=== PATIENT | female | born 1990 | race Caucasian/White ===

== ENCOUNTER 2016-04-05 00:56 | Emergency (ER) | payer BC ==
[2016-04-05] MEDS ORDERED: Ondansetron INJ* 2 MG/ML VIAL IV ONE (03:18)
[2016-04-05] MEDS ORDERED: NS 0.9% 1000 ML* 2,000 ML IV ONE (03:18)
[2016-04-05 03:30] LABS: Hematocrit 41 % (35-47); Hemoglobin 13.2 g/dl (12.0-16.0); Mean Corpuscular HGB Conc 32 g/dl (31-36); Mean Corpuscular Hemoglobin 27 pg (27-31); Mean Corpuscular Volume 83 fL (80-97); Mean Platelet Volume 9 um3 (7.4-10.4); Red Blood Count 4.97 10^6/ul (4.0-5.4); Red Cell Distribution Width 13 % (10.5-15); White Blood Count 15.5 10^3/ul (3.5-10.8)
[2016-04-05 03:33] LABS: Urine Bacteria Absent (Absent); Urine Bilirubin Negative (Negative); Urine Glucose Negative (Negative); Urine Nitrite Negative (Negative)
[2016-04-05 03:39] LABS: ALT 25 U/L (7-52); AST 18 U/L (13-39); Albumin 4.5 g/dL (3.2-5.2); Alkaline Phosphatase 76 U/L (34-104); Anion Gap 11 mmol/L (2-11); BUN/Creatinine Ratio 14.5 (8-20); Blood Urea Nitrogen 10 mg/dL (6-24); CO2 Carbon Dioxide 23 mmol/L (22-32); Calcium 9.7 mg/dL (8.6-10.3); Chloride 103 mmol/L (101-111); EGFR African American 132.3 (>60); EGFR Non-African American 102.8 (>60); Globulin 4.1 g/dL (2-4); Glucose 120 mg/dL (70-100); Lipase < 10 U/L (11.0-82.0); Potassium 3.7 mmol/L (3.5-5.0); Sodium 137 mmol/L (133-145); Total Protein 8.6 g/dL (6.4-8.9)
[2016-04-05] MEDS ORDERED: Metoclopramide IV* 5 MG/ML 2 ML VIAL IV ONE (04:55)
[2016-04-05] MEDS ORDERED: Iohexol 300* (CONTRAST) 10 ML SDV IV ONE (05:01)
--- NOTE | 2016-04-05 06:03 | ED ---
Alfredo Oropeza Aidan, scribed for Seth David on 04/05/16 at 0307 . Complex/Multi-Sys Presentation - HPI Summary HPI Summary: 26 y/o female presents to the ED with a complaint of acute, moderate episodes of nausea and vomiting that began 5 days ago and have persisted intermittently. She has not been able to keep down foods or drink. Recently, she had her wisdom teeth removed and developed dry sockets. - History Of Current Complaint Chief Complaint: EDNauseaVomitDiarrh Time Seen by Provider: 04/05/16 02:48 Hx Obtained From: Patient, Family/Pe Teacher Onset/Duration: Sudden Onset, Lasting Days, Still Present Timing: Intermittent, Lasting:, Hours Severity Currently: Moderate Severity Initially: Moderate Character: Sharp Aggravating Factor(s): unknown Alleviating Factor(s): unknown Associated Signs And Symptoms: Positive: Nausea, Vomiting - Allergies/Home Medications Allergies/Adverse Reactions: Allergies Allergy/AdvReac Type Severity Reaction Status Date / Time Sumatriptan [From Imitrex] Allergy Unknown Unknown Verified 05/16/12 14:13 Reaction Details PMH/Surg Hx/FS Hx/Imm Hx Endocrine/Hematology History: Denies: Hx Anticoagulant Therapy Respiratory History: Reports: Hx Asthma Infectious Disease History: Yes Infectious Disease History: Denies: Traveled Outside the [place] in Last 30 Days - Social History Occupation: Unemployed Lives: Alone Alcohol Use: None Substance Use Type: Reports: None Smoking Status (MU): Former Smoker Review of Systems Constitutional: Negative Eyes: Negative ENT: Negative Cardiovascular: Negative Respiratory: Negative Positive: Vomiting, Nausea Genitourinary: Negative Musculoskeletal: Negative Skin: Negative Neurological: Negative Psychological: Normal All Other Systems Reviewed And Are Negative: Yes Physical Exam Triage Information Reviewed: Yes Vital Signs On Initial Exam: Initial Vitals Temp Pulse Resp BP Pulse Ox 97.7 F 93 16 155/87 99 04/05/16 01:01 04/05/16 01:01 04/05/16 01:01 04/05/16 01:01 04/05/16 01:01 Vital Signs Reviewed: Yes Appearance: Positive: Well-Appearing, No Pain Distress Skin: Positive: Warm, Skin Color Reflects Adequate Perfusion, Dry Head/Face: Positive: Normal Head/Face Inspection Eyes: Positive: EOMI, NITIN ENT: Positive: Normal ENT inspection Neck: Positive: Supple, Nontender Respiratory/Lung Sounds: Positive: Clear to Auscultation, Breath Sounds Present Cardiovascular: Positive: RRR, Pulses are Symmetrical in both Upper and Lower Extremities Abdomen Description: Positive: Nontender, Soft Bowel Sounds: Positive: Present Musculoskeletal: Positive: Strength/ROM Intact Neurological: Positive: Sensory/Motor Intact, Alert, Oriented to Person Place, Time Psychiatric: Positive: Affect/Mood Appropriate AVPU Assessment: Alert Diagnostics - Vital Signs Vital Signs Temp Pulse Resp BP Pulse Ox 04/05/16 01:01 97.7 F 93 16 155/87 99 - Laboratory Result Diagrams: 04/05/16 02:53 04/05/16 02:53 Lab Statement: Any lab studies that have been ordered have been reviewed, and results considered in the medical decision making process. Complex Multi-Symp Course/Dx Course Of Treatment: This is a 26 y/o female presenting with nausea and vomiting. - Diagnoses Provider Diagnoses: Nausea & vomiting Discharge - Discharge Plan Condition: Stable Disposition: HOME Discharge Disposition Comment: Please follow up with your primary care physician within 3 days. Patient Education Materials: Acute Nausea and Vomiting (ED) Referrals: Gissel Ennis MD [Primary Care Provider] - The documentation as recorded by the Alfredo wolfe Aidan accurately reflects the service I personally performed and the decisions made by Frankie nguyen Emmanuel.
--- NOTE | 2016-04-05 06:09 | ED ---
Alfredo Oropeza Aidan, scribed for Seth David on 04/05/16 at 0608 . Progress - Progress Note Progress Note: ABDOMEN/PELVIS CT IMPRESSION: 4.3 CM PROBABLE LEFT-SIDED BARTHOLIN'S GLAND CYST , POSSIBLY AN INCIDENTAL FINDING. NO DEFINITE EVIDENCE OF ACUTE PATHOLOGY. Course/Dx - Course Course Of Treatment: This is a 26 y/o female presenting with nausea and vomiting. - Diagnoses Provider Diagnoses: Nausea & vomiting The documentation as recorded by the Alfredo wolfe Aidan accurately reflects the service I personally performed and the decisions made by Frankie nguyen Emmanuel.
[2016-04-05 06:19] VITALS: BP 143/88
--- NOTE | 2016-04-05 08:54 | RAD ---
INDICATION: Abdominal pain evaluate for diverticulitis. COMPARISON: There are no prior studies available for comparison. TECHNIQUE: A CT scan of the abdomen and pelvis was performed with intravenous and without oral contrast following intravenous injection of 139 ml of Omnipaque 300 nonionic contrast. Contiguous axial sections were obtained from the lung bases through the symphysis pubis. Images were reconstructed in the coronal and sagittal planes. FINDINGS: The lung bases are clear. No pleural effusion is present. The liver and spleen are within normal limits in size without significant focal abnormality. No calcified gallstones are seen. The pancreas appears to be within normal limits in size. The kidneys and adrenal glands are normal in size. No hydronephrosis is seen. No significant focal renal abnormality is seen. The aorta is normal in caliber and demonstrates homogeneous contrast opacification. No significant enlarged retroperitoneal lymph nodes are seen. The stomach, small and large bowel appear nondistended. The appendix is within normal limits. There is mild descending and sigmoid diverticulosis without evidence for diverticulitis. The uterus is anteverted and normal in size. There is a relatively large cyst present within the vagina centered on the left side measuring 4.2 x 4.1 x 3.1 cm in size possibly representing a Bartholin's gland cyst. There is a tampon present. No free intraperitoneal air or fluid is seen. No significant focal osseous abnormality is seen. IMPRESSION: 1. NO EVIDENCE FOR ACUTE INTRA-ABDOMINAL ABNORMALITY OR CAUSE FOR THE PATIENT'S ABDOMINAL PAIN IS SEEN. 2. 4.2 CM VAGINAL CYST DESCRIBED.
== END 2016-04-05 06:18 | disposition home or self-care (01) ==
LOC: ED 00:56
DX: R11.2 Nausea with vomiting, unspecified (principal); Z87.891 Personal history of nicotine dependence
CPT/HCPCS: 36415; 74177; 80053; 81003; 81015; 83690; 84702; 85025; 96361; 96374; 96375; 99282; J2405; J2765; Q9967

== ENCOUNTER 2018-09-16 11:16 | Emergency (ER) | payer OTHER ==
--- NOTE | 2018-09-16 13:44 | UC ---
Complaint Female HPI - HPI Summary HPI Summary: 28 y/o female presents to the urgent c/o of pelvic pain and bleeding after a miscarriage 3 days ago. Pt reports she think she has been 2 weeks . She has had 3 miscarriages in the past and she feels her symptoms are very similar now. She has not seen a doctor for the miscarriage. Symptoms started w/ pelvic cramping and then vaginal bleeding, the first day she saw large clots and possible embryo. Pt vaginal bleeding is mild now. Bur she already had 3 episodes of vomiting today and mild dizziness. LMP:08/01/2018 and was taking OCP. However she missed 1 week of her OCP and had unprotected sex. Pelvic pain is 6/10 and intermittent. Pt states Hx of chlamydia in the past which was treated. She doesn't know her Blood type. Pt denies fever, chills, chest pain,abdominal pain, N/v/d. Pt is hemodynamically stable, Vital: WN. UA and ordered. UA: + trace of protein, test: negative. Pt's symptoms discussed w/ DR Henriquez since patient probably needs to go to the ER for Blood type and Augusto. Dr Henriquez recommended Trasvaginal US to r/o or any other abnormality.. - History Of Current Complaint Chief Complaint: UCGU Stated Complaint: ABDOMINAL PAIN Time Seen by Provider: 09/16/18 13:42 Hx Obtained From: Patient Hx Last Menstrual Period: 09/16/18 ?: Yes Onset/Duration: Gradual Onset, Lasting Days - 3 days, Still Present Timing: Constant Severity Initially: Moderate Severity Currently: Moderate Pain Intensity: 4 - pelvic pain Pain Scale Used: 0-10 Numeric Character: Cramping Aggravating Factor(s): Urination Alleviating Factor(s): Nothing Associated Signs And Symptoms: Positive: Vaginal Bleeding/Discharge - mild today , Nausea, Vomiting(# Of Episodes =) - 3 episodes today Related Hx: - 4, Para - 0, Prior STD Hx - chlamydia - Risk Factors Ovarian Torsion Risk Factor: Negative - Allergies/Home Medications Allergies/Adverse Reactions: Allergies Allergy/AdvReac Type Severity Reaction Status Date / Time sumatriptan Allergy Unknown Verified 09/16/18 11:50 Reaction Details Home Medications: Home Medications Bismuth Subsalicylate [Pepto-Bismol] 1 dose PO ONCE PRN 09/16/18 [History Confirmed 09/16/18] PMH/Surg Hx/FS Hx/Imm Hx Previously Healthy: Yes Respiratory History: Asthma Neurological History: Migraine Other History Of: Negative For: Anticoagulant Therapy - Surgical History Surgical History: Yes Surgery Procedure, Year, and Place: T&A - Family History Known Family History: Positive: None - Pt is adopted - Social History Occupation: Employed Full-time Lives: With Family Alcohol Use: Occasionally Substance Use Type: Marijuana Smoking Status (MU): Heavy Every Day Tobacco Smoker Amount Used/How Often: 2ppd Household Exposure Type: Cigarettes Review of Systems All Other Systems Reviewed And Are Negative: Yes Constitutional: Positive: Negative Skin: Positive: Negative Eyes: Positive: Negative ENT: Positive: Negative Respiratory: Positive: Negative Cardiovascular: Positive: Negative Gastrointestinal: Positive: Vomiting, Nausea Genitourinary: Positive: Abnormal Bleeding - miscarrigae, Other - pelvic pain x 3 days Motor: Positive: Negative Neurovascular: Positive: Negative Musculoskeletal: Positive: Negative Neurological: Positive: Negative Psychological: Positive: Negative Is Patient Immunocompromised?: No Physical Exam - Summary Physical Exam Summary: Vital signs: reviewed General: well developed, well nourished female sitting in the examining table w/o any acute distress. Head: Normocephalic, no lesions. Eyes: PERRLA, EOM's full, conjunctiva clear, fundi grossly normal. Ears: EAC's clear, TM's normal. Nose: Mucosa normal, no obstruction. Throat: Clear, no exudates, no lesions. Neck: Supple, no masses, no thyromegaly, no bruits. Chest: Lungs clear, no rales, no rhonchi, no wheezes. Heart: RR, no murmurs, no rubs, no gallops. Abdomen: Soft, no tenderness, no masses, BS normal. Pelvic: I was assisted by Nurse Alicia. External genitalia within normal limits. There is no lesions there is no masses noted. Speculum exam: The vaginal hyde are within normal limits w/ normal mild bleeding discharge, no lesions or rashes. The cervix is closed with active mild bleeding coming from the cervical os, no clots observed. There is no CMT's, and no adnexal masses. Rectal: No lesions, no hemorrhoids, Back: Normal curvature, no tenderness. Extremities: FROM, no deformities, no edema, no erythema. Neuro: Physiological, no localizing findings. Skin: Normal, no rashes, no lesions noted. Triage Information Reviewed: Yes Vital Signs: Initial Vital Signs Temp 98 F 09/16/18 11:42 Pulse 84 09/16/18 11:42 Resp 18 09/16/18 11:42 BP 144/94 09/16/18 11:42 Pulse Ox 98 09/16/18 11:42 Complaint Female Dx - Course Course Of Treatment: 28 y/o female presents to the urgent c/o of pelvic pain and bleeding after a miscarriage 3 days ago. Pt reports she think she has been 2 weeks . She has had 3 miscarriages in the past and she feels her symptoms are very similar now. She has not seen a doctor for the miscarriage. Symptoms started w/ pelvic cramping and then vaginal bleeding, the first day she saw large clots and possible embryo. Pt vaginal bleeding is mild now. Bur she already had 3 episodes of vomiting today and mild dizziness. LMP:08/01/2018 and was taking OCP. However she missed 1 week of her OCP and had unprotected sex. Pelvic pain is 6/10 and intermittent. Pt states Hx of chlamydia in the past which was treated. She doesn't know her Blood type. Pt denies fever, chills, chest pain,abdominal pain, N/v/d. Hx obtained. - Differential Dx/Diagnosis Differential Diagnosis/HQI/PQRI: Appendicitis, Ectopic, Ovarian Cyst, Ovarian Torsion, Pelvic Inflammatory Disease, , Renal Colic, Ureteral Stone, Urinary Tract Infection, Other - Provider Diagnosis: Pelvic pain, Nausea & vomiting, Abnormal vaginal bleeding Discharge - Sign-Out/Discharge Documenting (check all that apply): Patient Departure All imaging exams completed and their final reports reviewed: Yes - Discharge Plan Condition: Stable Disposition: HOME Prescriptions: Ibuprofen TAB* [Motrin TAB* 800 MG] 800 mg PO Q6H PRN #30 tab PRN Reason: Pain Ondansetron ODT TAB* [Zofran 4 MG Odt TAB*] 4 mg PO Q6H PRN #9 tab.odt PRN Reason: Vomiting Patient Education Materials: Dysfunctional Uterine Bleeding (ED), Acute Nausea and Vomiting (ED) Referrals: Gissel Ennis MD [Primary Care Provider] - 1 Day Additional Instructions: 1-Please f/u with SENIOR ACCOUNT REPRESENTATIVE in 1-2 days for further management in your abnormal vaginal bleeding 2- test is negative and you declined beta HCG test. 2-Take Ibuprofen PO as directed to alelviate symptoms. Take Zofran PO to alleviate N/V. increase hydration and rest. 4- Please f/u w/ your SENIOR ACCOUNT REPRESENTATIVE in 1-2 days for further management in your abnormal vaginal bleeding. 5-- If symptom worsen and your developed severe pelvic pain and fever and you don't know your blood type you should go immediately to the ER for further management. - Billing Disposition and Condition Condition: STABLE Disposition: Home
[2018-09-16] MEDS ORDERED: Ondansetron TAB* 4 MG PO ONE (14:12)
[2018-09-16] MEDS ORDERED: Ondansetron ODT TAB* 4 MG PO ONE (14:20)
[2018-09-16 16:09] VITALS: BP 118/78
== END 2018-09-16 16:36 | disposition home or self-care (01) ==
LOC: UCEAST 11:16
DX: R10.2 Pelvic and perineal pain (principal); R11.2 Nausea with vomiting, unspecified; N93.9 Abnormal uterine and vaginal bleeding, unspecified; F17.210 Nicotine dependence, cigarettes, uncomplicated
CPT/HCPCS: 76830; 81003; 84702; 99212; A9270-GY; G0463

== ENCOUNTER 2018-12-23 22:07 | Emergency (ER) | payer OTHER ==
[2018-12-23] MEDS ORDERED: Albuterol/Ipratropium NEB.SOL* Albuterol 2.5 MG/Ipratropium 0.5 MG 3 ML INH ONE (23:41)
--- NOTE | 2018-12-24 00:09 | ED ---
Respiratory - HPI Summary HPI Summary: 28-year-old female presents shortness of breath today. She states that 3 days ago she had a cold and it seemed to bother she seemed to have a cough for a little while afterwards. She states that today she had the shortness breath out of nowhere and then developed a cough. She is on control and she does smoke. Denies any family history of blood clots. No recent travel. She states that she was wheezy. She does have a history of childhood asthma. Denies any pain or swelling in calf muscles. - History of Current Complaint Chief Complaint: EDShortnessOfBreath Stated Complaint: DIFFICULTY BREATHING PER PT Time Seen by Provider: 12/23/18 23:33 Pain Intensity: 0 - Allergy/Home Medications Allergies/Adverse Reactions: Allergies Allergy/AdvReac Type Severity Reaction Status Date / Time sumatriptan Allergy Unknown Verified 12/23/18 22:12 Reaction Details Home Medications: Home Medications Norgestimate-Ethinyl Estradiol [Schuyler-Linyah 28 Tablet] 1 tab PO DAILY 12/23/18 [ History Confirmed 12/23/18] PMH/Surg Hx/FS Hx/Imm Hx Endocrine/Hematology History: Denies: Hx Anticoagulant Therapy, Hx Diabetes Cardiovascular History: Denies: Hx Hypertension Respiratory History: Reports: Hx Asthma History: Denies: Hx Renal Disease Sensory History: Denies: Hx Eye Prosthesis, Hx Legally Blind, Hx Deafness Opthamlomology History: Denies: Hx Eye Prosthesis, Hx Legally Blind Psychiatric History: Denies: Hx Eating Disorder, Hx of Violent Episodes Against Others - Surgical History Surgery Procedure, Year, and Place: T&A Infectious Disease History: No Infectious Disease History: Denies: Traveled Outside the [place] in Last 30 Days - Family History Known Family History: Positive: None - Pt is adopted - Social History Alcohol Use: Rare Substance Use Type: Reports: Marijuana Smoking Status (MU): Heavy Every Day Tobacco Smoker Amount Used/How Often: 2ppd Review of Systems Negative: Fever Negative: Chest Pain Positive: Shortness Of Breath, Cough Negative: Abdominal Pain All Other Systems Reviewed And Are Negative: Yes Physical Exam Triage Information Reviewed: Yes Vital Signs On Initial Exam: Initial Vitals Temp Pulse Resp BP Pulse Ox 97.9 F 96 16 137/95 96 12/23/18 22:10 12/23/18 22:10 12/23/18 22:10 12/23/18 22:10 12/23/18 22:10 Vital Signs Reviewed: Yes Appearance: Positive: Well-Appearing Skin: Positive: Warm, Dry Head/Face: Positive: Normal Head/Face Inspection Eyes: Positive: Normal, EOMI, NITIN, Conjunctiva Clear ENT: Positive: Normal ENT inspection, Pharynx normal, TMs normal Respiratory/Lung Sounds: Positive: Clear to Auscultation, Breath Sounds Present Cardiovascular: Positive: Normal, RRR Abdomen Description: Positive: Nontender, Soft Bowel Sounds: Positive: Present Musculoskeletal: Positive: Normal Neurological: Positive: Normal Psychiatric: Positive: Normal Procedures - Sedation Patient Received Moderate/Deep Sedation with Procedure: No Diagnostics - Vital Signs Vital Signs Temp Pulse Resp BP Pulse Ox 12/23/18 22:10 97.9 F 96 16 137/95 96 - Laboratory Result Diagrams: 12/24/18 00:07 12/24/18 00:07 Lab Statement: Any lab studies that have been ordered have been reviewed, and results considered in the medical decision making process. - Radiology chest Radiology Interpretation Completed By: ED Physician Summary of Radiographic Findings: no active disease - EKG No standard instances Cardiac Rate: NL EKG Rhythm: Sinus Rhythm Summary of EKG Findings: sinus rhythm Re-Evaluation - Re-Evaluation First Eval Re-Evaluation Time: 01:04 Change: Improved Comment: lungs CTA Disposition - Course Course Of Treatment: 28-year-old female presents shortness of breath today. She states that 3 days ago she had a cold and it seemed to bother she seemed to have a cough for a little while afterwards. She states that today she had the shortness breath out of nowhere and then developed a cough. She is on control and she does smoke. Denies any family history of blood clots. No recent travel. She states that she was wheezy. She does have a history of childhood asthma. Denies any pain or swelling in calf muscles. On exam lungs clear to auscultation. Has an occasional cough. wbc 15. ekg sinus rhythm. chest xray normal. d-dimer neg. will treat with inhaler and steriod. patient understand and agrees with plan. - Differential Dx - Cardiopulmonary Differential Diagnoses - Cardiopulmonary: Bronchitis, Lower Resp Infection, Pulmonary Embolism - Diagnoses Provider Diagnoses: Bronchitis Discharge ED - Sign-Out/Discharge Documenting (check all that apply): Patient Departure - Discharge Plan Condition: Good Disposition: HOME Prescriptions: predniSONE TAB* [Deltasone TAB*] 50 mg PO DAILY #5 tab Patient Education Materials: Acute Bronchitis (ED) Referrals: Gissel Ennis MD [Primary Care Provider] - Additional Instructions: Use inhaler one puff every 4-6 hours for cough as needed Take steroid once a day for 5 days Follow up with primary care physician in 5 days Return to ED if develop any new or worsening symptoms - Billing Disposition and Condition Condition: GOOD Disposition: Home
[2018-12-24 00:26] LABS: Hematocrit 39 % (35-47); Hemoglobin 12.5 g/dL (12.0-16.0); Mean Corpuscular HGB Conc 32 g/dL (31-36); Mean Corpuscular Hemoglobin 27 pg (27-31); Mean Corpuscular Volume 84 fL (80-97); Mean Platelet Volume 8.9 fL (7.4-10.4); Platelet Count 333 10^3/uL (150-450); Red Cell Distribution Width 13 % (10-15); White Blood Count 15.2 10^3/uL (3.5-10.8)
[2018-12-24] MEDS ORDERED: guaiFENesin/CODIENE 100mg/10mg 5 ML UDC PO ONE (00:32)
[2018-12-24 00:42] LABS: ALT 17 U/L (7-52); AST 14 U/L (13-39); Albumin 4.1 g/dL (3.2-5.2); Albumin/Globulin Ratio 1.4 (1-3); Alkaline Phosphatase 93 U/L (34-104); Anion Gap 9 mmol/L (2-11); BUN/Creatinine Ratio 19.2 (8-20); Blood Urea Nitrogen 14 mg/dL (6-24); CO2 Carbon Dioxide 23 mmol/L (22-32); Calcium 9.1 mg/dL (8.6-10.3); Chloride 104 mmol/L (101-111); EGFR African American 114.9 (>60); EGFR Non-African American 94.9 (>60); Glucose 132 mg/dL (70-100); Potassium 3.7 mmol/L (3.5-5.0); Sodium 136 mmol/L (135-145); Total Protein 7.1 g/dL (6.4-8.9)
[2018-12-24 00:48] LABS: HCG Pregnancy < 0.60 mIU/mL
[2018-12-24 01:25] LABS: ABS Eosinophils 0.5 10^3/ul (0-0.6); ABS Lymphocytes 5.6 10^3/ul (1.0-4.8); ABS Monocytes 0.9 10^3/ul (0-0.8); ABS Neutrophils 8.2 10^3/ul (1.5-7.7); Eosinophil % 3.2 %; Lymphocyte % 36.8 %; Nucleated Red Blood Cells % 0.1
[2018-12-24] MEDS ORDERED: A lbuterol Hfa (PREPAK) 1 MDI - ED TAKE HOME DISPENSING ONLY INHH ONE (01:25)
[2018-12-24 01:43] VITALS: BP 124/78
== END 2018-12-24 01:41 | disposition home or self-care (01) ==
LOC: ED 22:07
DX: J40 Bronchitis, not specified as acute or chronic (principal); Z88.8 Allergy status to other drugs, medicaments and biological substances; F17.200 Nicotine dependence, unspecified, uncomplicated
CPT/HCPCS: 36415; 71046; 80053; 84702; 85025; 85060; 85379; 93005; 99283; A9270-GY

== ENCOUNTER 2020-01-28 23:59 | Inpatient (IN) ==
[2020-01-29 01:03] LABS: ABS Basophils 0.1 10^3/ul (0-0.2); ABS Eosinophils 0.1 10^3/ul (0-0.6); ABS Lymphocytes 2.5 10^3/ul (1.0-4.8); ABS Monocytes 0.8 10^3/ul (0-0.8); ABS Neutrophils 17.9 10^3/ul (1.5-7.7); Eosinophil % 0.7 %; Hematocrit 41 % (35-47); Hemoglobin 13.4 g/dL (12.0-16.0); Lymphocyte % 11.7 %; Mean Corpuscular HGB Conc 33 g/dL (31-36); Mean Corpuscular Hemoglobin 28 pg (27-31); Mean Corpuscular Volume 85 fL (80-97); Mean Platelet Volume 8.6 fL (7.4-10.4); Platelet Count 335 10^3/uL (150-450); Red Blood Count 4.82 10^6 /uL (3.70-4.87); Red Cell Distribution Width 13 % (10-15); White Blood Count 21.4 10^3/uL (3.5-10.8)
[2020-01-29 01:19] LABS: ALT 17 U/L (7-52); AST 13 U/L (13-39); Albumin 4.4 g/dL (3.2-5.2); Albumin/Globulin Ratio 1.3 (1-3); Alkaline Phosphatase 95 U/L (34-104); Anion Gap 9 mmol/L (2-11); BUN/Creatinine Ratio 19.4 (8-20); Blood Urea Nitrogen 14 mg/dL (6-24); CO2 Carbon Dioxide 21 mmol/L (22-32); Calcium 9.2 mg/dL (8.6-10.3); Chloride 104 mmol/L (101-111); EGFR African American 115.9 (>60); EGFR Non-African American 95.8 (>60); Globulin 3.4 g/dL (2-4); Glucose 136 mg/dL (70-100); Potassium 3.8 mmol/L (3.5-5.0); Sodium 134 mmol/L (135-145); Total Protein 7.8 g/dL (6.4-8.9)
[2020-01-29 01:32] LABS: Acetaminophen < 15 mcg/mL; Alcohol, S < 10 mg/dL (<10); Salicylate < 2.50 mg/dL (<30)
[2020-01-29 01:48] LABS: TSH Ultra Thyroid Stim Horm 1.93 mcIU/mL (0.34-5.60)
[2020-01-29 07:07] LABS: Urine Appearance Cloudy; Urine Bilirubin 1+ (Negative); Urine Blood Negative (Negative); Urine Color Amber; Urine Glucose Negative (Negative); Urine Ketones 2+ (Negative); Urine Nitrite Negative (Negative); Urine Protein 2+(100 mg/dL) (Negative); Urine Specific Gravity 1.034 (1.010-1.030); Urine Urobilinogen Negative (Negative)
[2020-01-29 07:10] LABS: Urine Bacteria Absent (Absent); Urine Red Blood Cell 2+(6-10/hpf) (Absent); Urine Squamous Epithelial Cell Present (Absent); Urine White Blood Cell Trace(0-5/hpf) (Absent)
[2020-01-29 07:14] LABS: Urine Benzodiazepine Screen None Detected (None Detect); Urine Cannabinoids Screen Presumptive Positive (None Detect); Urine Opiates Screen None Detected (None Detect)
[2020-01-29] MEDS ORDERED: Al Hydrox/Mg Hydrox/Simet LIQ 30 ML UDC PO PRN (11:35)
[2020-01-30 08:10] LABS: Cholesterol 167 mg/dL; HDL Cholesterol 31.2 mg/dL; LDL Cholesterol 118 mg/dL; Triglycerides 89 mg/dL
[2020-01-30] MEDS: Vitamin THERAPEUTIC TAB PO SCH (08:47)
[2020-01-30 12:26] LABS: HCG Pregnancy < 0.60 mIU/mL
[2020-01-31] MEDS: Nicotine GUM 4MG FRUIT FLAVOR PO PRN ×3 (08:52→16:10)
[2020-01-31] MEDS: Vitamin THERAPEUTIC TAB PO SCH (08:52)
[2020-02-01] MEDS: Nicotine GUM 4MG FRUIT FLAVOR PO PRN (05:47)
[2020-02-01 08:34] VITALS: BP 141/87
[2020-02-01] MEDS: Vitamin THERAPEUTIC TAB PO SCH (09:07)
== END 2020-02-01 11:15 | disposition home or self-care (01) | DRG 751 ==
LOC: ED 23:59 → BSU 01-29 13:18
PROVIDERS: ADMIT Psychiatry & Neurology Psychiatry; ATTEND Psychiatry & Neurology Psychiatry